=== PATIENT | male | born 1995 | race African-American/Black ===

== ENCOUNTER 2017-01-18 12:58 | Emergency (ER) | payer OTHER ==
[~2017-01-18] VITALS: Ht 185.4 cm; Wt 99.8 kg
[~2017-01-18 12:58] MED LIST: ALBUTEROL SULF8.5 GM INH; IBUPROFEN600 MG ORAL; NAPROSYN375 M1 ORAL
--- NOTE | 2017-01-18 14:11 | Diagnostic Imaging Report ---
Indication: Pain 3 views of the left knee were obtained. Findings: No acute fracture or malalignment identified. There is opacification of the suprapatellar pouch consistent with a joint effusion. Impression: Joint effusion
[2017-01-18] MEDS ORDERED: IBUPROFEN600 MG ORAL (14:13)
[2017-01-18 14:30] VITALS: BP 130/7
--- NOTE | 2017-01-18 16:46 | Emergency Room Report ---
History of Present Illness General Chief Complaint: Lower Extremity Injury Source: Patient Present Illness HPI The patient is a 22-year-old male presenting for Left knee pain. He states that this began 1 month prior a plane basketball. He states that the left leg was planted and he felt the knee moved outward. He states the pain has decreased and is now a 3/10 dull ache. Worse with movement. He does however state that the knee feels less stable. He denies falling after the injury. He denies any numbness or tingling. He denies any other symptoms Allergies: Coded Allergies: No Known Allergies (Unverified , 12/26/12) Patient History Past Medical History: see triage record Pertinent Family History: none Reviewed Nursing Documentation: PMH: Agreed, PSxH: Agreed Nursing Documentation-PMH Past Medical History: No History, Except For Hx Asthma: Yes Review of Systems All Other Systems: negative except mentioned in HPI Physical Exam Vital Signs Date Time Temp Pulse Resp B/P (MAP) Pulse Ox O2 Delivery O2 Flow Rate FiO2 01/18/17 13:24 98.1 53 16 143/89 98 Room Air Sp02 EP Interpretation: reviewed, normal General Appearance: no apparent distress, alert, GCS 15, non-toxic Head: normocephalic, atraumatic Eyes: bilateral eye normal inspection, bilateral eye PERRL ENT: hearing grossly normal, normal pharynx, no angioedema, normal voice Neck: full range of motion, supple/symm/no masses Respiratory: chest non-tender, lungs clear, normal breath sounds, speaking full sentences Musculoskeletal: normal range of motion, swelling - diffuse swelling to L knee , tender - L knee non tender Neurologic: alert, oriented x3, responsive, motor strength/tone normal, sensory intact, speech normal Psychiatric: judgement/insight normal, memory normal, mood/affect normal, no suicidal/homicidal ideation Skin: normal color, no rash, warm/dry, well hydrated Procedures Splinting Splinting : Consent: Verbal Location: L knee Pre-Made Type: knee immobilizer Pre-Proc Neuro Vasc Exam: normal Post-Proc Neuro Vasc Exam: normal Patient Tolerated: Well Complications: None Medical Decision Making PA Attestation Dr. Reynolds is my supervising physician. Patient management was discussed with my supervising physician Diagnostic Impression: Primary Impression: Sprain of left knee Qualified Codes: S83.92XA - Sprain of unspecified site of left knee, initial encounter ER Course The patient is a 22-year-old male presenting for Left knee pain. Ddx considered include but not limited to sprain/strain, fracture, contusion, ligament injury, among others PE: NAD Left knee: There is diffuse edema. Nontender. Full active range of motion. No crepitus. No laxity. Normal gait X-ray of the left knee is unremarkable A left knee immobilizer is placed as this is suspected ligament injury. The patient was informed she will likely need an MRI and needs to followup with his primary doctor as soon as possible ER precautions are given Other X-Ray Diagnostic Results Other X-Ray Diagnostic Results : X-Ray ordered: L knee # of Views/Limited Vs Complete: 3 View Indication: Pain EP Interpretation: Yes Interpretation: no dislocation, no fractures, other - joint effusion Impression: Other - joint effusion Electronically Signed by: ASIM Cedeno Scribe Text I have reviewed the xray with my supervising physician and interpretation is that there are no fractures, dislocations. There is a joint effusion Last Vital Signs Date Time Temp Pulse Resp B/P (MAP) Pulse Ox O2 Delivery O2 Flow Rate FiO2 01/18/17 14:30 84 16 130/7 98 01/18/17 13:24 98.1 Room Air Status: improved Disposition: HOME, SELF-CARE Condition: Improved Scripts Ibuprofen* (MOTRIN*) 600 Mg Tablet 600 MG ORAL Q8H Y for For Pain, #30 TAB 0 Refills Prov: KADY MORSE 01/18/17 Patient Instructions: Knee Immobilizer, Knee Sprain Additional Instructions: I discussed my findings with the patient. All questions and concerns have been answered. Treatment and medication compliance have been addressed. I advised the patient that they need to follow up with PMD in 3-5 days. Return to ED if pain remains or worsens, numbness or tingling occurs, new rash is noticed, fever is noticed, or if needed for any reason. Patient verbalized understanding of discharge instructions. The patient will likely need MRI for further evaluation KADY MORSE Jan 18, 2017 16:46
== END 2017-01-18 14:34 | disposition home or self-care (01) ==
LOC: EMR 13:25
DX: S83.92XA Sprain of unspecified site of left knee, initial encounter (principal); Y93.67 Activity, basketball; Y92.89 Other specified places as the place of occurrence of the external cause; J45.909 Unspecified asthma, uncomplicated; M25.462 Effusion, left knee
CPT/HCPCS: 29530; 99284